=== PATIENT | female | born 1940 | race Caucasian/White ===

== ENCOUNTER → 2020-03-31 | Day surgery (SDC) | payer MEDICARE, OTHER ==
[~2020-03-31] MED LIST: BETAPACE 80MG T80 MG PO; CATAPRES 0.1MG0.1 MG PO; DOCUSATE SODIU250 MG PO; ECOTRIN81 MG PO; GABAPENTIN100 MG PO; HYDROCODON-ACE1 EAC2 PO; HYDROCODON-ACE1 EAC4 PO; IBUPROFEN600 MG PO; LISINOPRIL10 MG PO; PREMARIN VAG CR30 GM VG; PROTONIX 40 MG40 M1 PO; PROZAC 20 MG CA20 MG PO; RESTASIS 0.05%1 EACH OD; TRAMADOL HCL50 MG PO; VALIUM 10 MG TA10 MG PO; VITAMIN D3125 MC1 PO
[2020-03-31 08:12] LABS: HEMOGLOBIN 11.4 gm/dl (12.3-15.3); RED BLOOD COUNT 3.94 M/UL (4.00-5.10); WHITE BLOOD COUNT 3.9 K/UL (4.5-11.0)
== END | disposition home or self-care (01) ==
LOC: OR 07:07
PROVIDERS: Obstetrics & Gynecology
DX: T85.9XXA Unspecified complication of internal prosthetic device, implant and graft, initial encounter (principal); R33.9 Retention of urine, unspecified; N39.0 Urinary tract infection, site not specified; M62.89 Other specified disorders of muscle; I48.91 Unspecified atrial fibrillation; I12.9 Hypertensive chronic kidney disease with stage 1 through stage 4 chronic kidney disease, or unspecified chronic kidney disease; J18.9 Pneumonia, unspecified organism; D64.9 Anemia, unspecified; K27.9 Peptic ulcer, site unspecified, unspecified as acute or chronic, without hemorrhage or perforation; N18.9 Chronic kidney disease, unspecified; M19.90 Unspecified osteoarthritis, unspecified site; N20.0 Calculus of kidney; R07.2 Precordial pain; G62.9 Polyneuropathy, unspecified; Z82.49 Family history of ischemic heart disease and other diseases of the circulatory system; Z98.890 Other specified postprocedural states; Z79.899 Other long term (current) drug therapy; Z79.82 Long term (current) use of aspirin; Z88.6 Allergy status to analgesic agent; Z91.011 Allergy to milk products
CPT/HCPCS: 36415; 71045; 81001; 85025; 93005; C1769; C1771; J0690; J2001; J2704; J2710; J7120